=== PATIENT | male | born 1995 | race Caucasian/White ===

== ENCOUNTER → 2018-01-19 | Outpatient (CLI) | payer OTHER ==
[~2018-01-19] MED LIST: GADAVIST IV PRN
--- NOTE | 2018-01-19 13:36 | DIAGNOSTIC IMAGING REPORT ---
FLUOROSCOPICALLY GUIDED RIGHT HIP ARTHROGRAM PRIOR TO MRI CLINICAL HISTORY: Right hip pain. COMPARISON STUDY: None FLUOROSCOPY TIME: 21 seconds. FINDINGS: 1 fluoroscopic image was obtained. The procedure, risks and benefits were discussed with the patient including the risk of bleeding, infection and injury to adjacent structures. The patient agreed to the procedure and informed written consent was obtained. The procedure was performed by Dr. Land following a timeout. Skin overlying the right hip joint was prepped and draped in sterile fashion and local anesthesia was achieved with 1% lidocaine. Under intermittent fluoroscopic guidance, a 3 1/2 inch, 22-gauge needle was directed into the right hip joint. Positioning within the joint space was confirmed with injection of a small amount of contrast. At this time, 7 cc of a mixture of 0.05 cc of gadolinium, 10 cc of normal saline and 10 cc of Optiray 300 was injected into the right hip joint. The needle was removed. The patient tolerated the procedure well and no immediate complications were evident. IMPRESSION: Successful fluoroscopically guided right hip arthrogram prior to MRI. Electronically signed by: David Land M.D. 01/19/2018 1:34 PM Dictated Date/Time: 01/19/2018 1:32 PM
--- NOTE | 2018-01-19 14:06 | DIAGNOSTIC IMAGING REPORT ---
LOWER EXT JOINT WITH CLINICAL HISTORY: 22 years-old Male presenting with RIGHT HIP PAIN. TECHNIQUE: Multisequence, multiplanar MR imaging of the right hip was performed after the administration of intra-articular contrast. IV contrast: None. COMPARISON: None. FINDINGS: Localizer images: Unremarkable. Bone marrow: Normal bone marrow signal intensity. No bony edema. Articular cartilage: Linear fluid signal intensity undermining the superior medial acetabular cartilage suggesting a delaminating injury (series 6 image 11; series 5 image 11). The region of abnormal cartilage measures 6 mm in width. The remainder of the articular cartilage appears intact. Labrum: Acetabular labrum intact. No evidence of labral tear, chondrolabral separation or paralabral cyst. Bursae: No pathologic distention of the iliopsoas or trochanteric bursae. Joint effusion: Intra-articular contrast distends the hip joint. Sciatic nerve: Normal appearance of the sciatic nerve. Muscle: Normal muscle bulk and muscle signal intensity. Superficial soft tissue: No subcutaneous edema. IMPRESSION: Suspected limited delaminating cartilage injury in the superior-medial acetabular cartilage. Remaining soft tissue structures normal. Electronically signed by: Benedicto Mares M.D. 01/19/2018 2:05 PM Dictated Date/Time: 01/19/2018 1:58 PM
== END | disposition home or self-care (01) ==
LOC: C.MRIBC 12:53
PROVIDERS: ATTEND Family Medicine
DX: M25.551 Pain in right hip (principal)